=== PATIENT | female | born 1960 | race Caucasian/White ===

== ENCOUNTER → 2017-08-19 13:09 | Outpatient (CLI) | payer OTHER, SELFPAY ==
[2017-08-19 16:29] LABS: Estradiol < 11.0 pg/mL
[2017-08-19 16:30] LABS: Progesterone Level 0.89 ng/mL (See Comment)
[2017-08-23 11:58] LABS: HPV Reflexed? NOT INDICATED
== END ==
PROVIDERS: Visit Provider Obstetrics & Gynecology
DX: N95.1 Menopausal and female climacteric states (principal); Z12.4 Encounter for screening for malignant neoplasm of cervix
CPT/HCPCS: 36415; 82670; 84144; 84403; 88175; G0145

== ENCOUNTER → 2017-08-21 13:23 | Outpatient (CLI) | payer OTHER, SELFPAY ==
--- NOTE | 2017-08-21 13:30 | US_ITS ---
STUDY: ULTRASOUND COMPLETE CLINICAL: Female, 57 years old. Pelvic pain TECHNIQUE: Transvaginal and transabdominal COMPARISON: None. FINDINGS: Normal uterine size measuring 6.5 x 4 x 2.5 cm in maximal craniocaudal dimension. There are no myometrial masses. Normal endometrial thickness measuring 4 mm. There are no endometrial masses, and there is no fluid in the endometrial cavity. Normal uterine cervix. Normal right ovary, measuring 1.9 x 1.8 x 1.1 cm. There are multiple follicles without a dominant cyst. Normal left ovary, measuring 3 x 2.2 x 1.3 cm. There are multiple follicles without a dominant cyst. There is no free fluid in the pelvis. Polycystic ovary disease: No. US/Pelvic (Non ) IMPRESSION: Normal pelvic sonogram Electronically Signed: Jd Leggett MD at 22:38 EST , Service support ,
--- NOTE | 2017-08-21 14:26 | US_ITS ---
STUDY: ULTRASOUND COMPLETE CLINICAL: Female, 57 years old. Pelvic pain TECHNIQUE: Transvaginal and transabdominal COMPARISON: None. FINDINGS: Normal uterine size measuring 6.5 x 4 x 2.5 cm in maximal craniocaudal dimension. There are no myometrial masses. Normal endometrial thickness measuring 4 mm. There are no endometrial masses, and there is no fluid in the endometrial cavity. Normal uterine cervix. Normal right ovary, measuring 1.9 x 1.8 x 1.1 cm. There are multiple follicles without a dominant cyst. Normal left ovary, measuring 3 x 2.2 x 1.3 cm. There are multiple follicles without a dominant cyst. There is no free fluid in the pelvis. Polycystic ovary disease: No. US/Transvaginal Non- IMPRESSION: Normal pelvic sonogram Electronically Signed: Jd Leggett MD at 22:38 EST , Service support ,
== END ==
PROVIDERS: Family Provider Nurse Practitioner; PCP Nurse Practitioner; Visit Provider Obstetrics & Gynecology
DX: R10.2 Pelvic and perineal pain (principal)
CPT/HCPCS: 76830; 76856; 93976

== ENCOUNTER → 2017-08-26 07:00 | Outpatient (CLI) | payer OTHER, SELFPAY ==
--- NOTE | 2017-08-26 07:03 | HPBI_ITS ---
MAMMOGRAPHY - BILATERAL SCREENING REASON FOR EXAM: Female, 57 years old. Routine annual screening examination. PERTINENT HISTORY: Mother with breast cancer. TECHNIQUE: Digital bilateral breast joce (3D mammographic acquisition) in the CC and MLO projections. 2-D mediolateral oblique (MLO) and craniocaudad (CC) views of both breasts were obtained. CAD: Full Field Digital Mammography with Computer Added Detection was performed. COMPARISON: Comparison is made with prior study dated August 16, 2016 and June 09, 2015. FINDINGS: Breast Composition: The breasts are heterogeneously dense, which may obscure small masses. There are no dominant masses or suspicious calcifications. Stable bilateral benign appearing axillary lymph nodes. No other significant abnormalities are identified. HPBI/SCREENING MAMM (CAD), BILAT IMPRESSION: Stable bilateral screening mammogram. Yearly follow-up mammogram recommended. (A) ASSESSMENT CATEGORY: BIRADS Category 2: Benign. A letter regarding these results will be sent to the patient by the facility within 30 days. Approximately 10% of breast cancers are not detected by mammography. A normal mammogram should not delay biopsy of a clinically suspicious abnormality. [id number] Electronically Signed: Jose Spring MD at 8:54 EST Tel [phone], Service support ,
== END ==
PROVIDERS: Family Provider Nurse Practitioner; Visit Provider Obstetrics & Gynecology
DX: Z12.31 Encounter for screening mammogram for malignant neoplasm of breast (principal)
CPT/HCPCS: 77063; 77067

== ENCOUNTER 2017-09-04 09:36 | Day surgery (SDC) | payer OTHER, SELFPAY ==
[2017-09-04 09:54] VITALS: BP 147/90; PULSE 84; RESP 18; TEMP 36.7; O2SAT 99; BMI 32.4
[2017-09-04 11:35] VITALS: BP 131/87; BP 147/90; PULSE 85; RESP 18; TEMP 36.4; O2SAT 98
[2017-09-04 11:40] VITALS: BP 142/89; BP 147/90; PULSE 88; RESP 18; O2SAT 99
[2017-09-04 11:45] VITALS: BP 135/91; BP 147/90; PULSE 80; RESP 16; O2SAT 99
--- NOTE | 2017-09-04 11:45 | PCM.OPRPT ---
Report of Operation Date of Procedure: 09/04/17 Pre-Operative Diagnosis: Screening for colon cancer Post-Operative Diagnosis: Mild sigmoid diverticulosis Surgery/Procedure Performed:: Colonoscopy Type of Anesthesia:: MAC Anesthesiologist: Everton Chang Specimen's removed: None Estimated Blood Loss (mL): None Description of Procedure: Procedure: Colonoscopy After reviewing the risks benefits, the patient was deemed in satisfactory condition to undergo procedure. After obtaining informed consent, the scope was passed under direct visualization. Throughout the procedure, the patient's blood pressure pulse and position saturations were monitored continuously anesthesia. The colonoscope was introduced through the anus and advanced to the cecum, identified by the appendiceal orifice, IC valve and transillumination. The colonoscopy was performed without difficulty. The patient tolerated procedure well. Quality of bowel prep was good. Findings: The perianal and digital rectal exam were normal. Mild sigmoid diverticulosis was noted. Otherwise the colon (entire examined portion) appeared normal. Retroflexed view of the distal rectum and anal verge was normal and showed no anal or rectal abnormalities Impression: 1. Mild sigmoid diverticulosis 2. The distal rectal and anal verge were normal on retroflexed view. Recommendations: High-fiber diet Repeat colonoscopy in 10 years for screening purposes - Complications none
[2017-09-04 11:49] VITALS: BP 126/95; BP 147/90; PULSE 83; RESP 16; TEMP 36.2; O2SAT 99
[2017-09-04 12:40] VITALS: BP 147/90
== END 2017-09-04 12:41 | disposition home or self-care (01) ==
LOC: EN 09:37 → AC 09:38
PROVIDERS: Visit Provider Surgery
PROC: 0DJD8ZZ Inspection of Lower Intestinal Tract, Via Natural or Artificial Opening Endoscopic (ICD-10-PCS; CPT 45378; principal; 2017-09-04 10:55)
DX: Z12.11 Encounter for screening for malignant neoplasm of colon (principal); K57.30 Diverticulosis of large intestine without perforation or abscess without bleeding; Z87.19 Personal history of other diseases of the digestive system; Z78.0 Asymptomatic menopausal state
CPT/HCPCS: 45378; J7120

== ENCOUNTER → 2018-10-22 | Outpatient (CLI) | payer OTHER, SELFPAY ==
[2018-10-08 11:05] VITALS: BMI 30.8
--- NOTE | 2018-10-22 10:01 | BI_ITS ---
MAMMOGRAPHY - BILATERAL SCREENING REASON FOR EXAM: Female, 58 years old. Routine annual screening examination. PERTINENT HISTORY: Mother with breast cancer. TECHNIQUE: Digital bilateral breast joce (3D mammographic acquisition) in the CC and MLO projections. 2-D mediolateral oblique (MLO) and craniocaudad (CC) views of both breasts were obtained. CAD: Full Field Digital Mammography with Computer Added Detection was performed. COMPARISON: Comparison is made with prior study dated August 26, 2017 and August 16, 2016. FINDINGS: Breast Composition: The breasts are heterogeneously dense, which may obscure small masses. There are no dominant masses or suspicious calcifications. Stable benign-appearing bilateral axillary lymph nodes. No other significant abnormalities are identified. There has been no significant change since the prior study. BI/SCREENING MAMM (CAD), BILAT IMPRESSION: Stable bilateral screening mammogram. Yearly follow-up mammogram recommended. (A) ASSESSMENT CATEGORY: BIRADS Category 2: Benign. A letter regarding these results will be sent to the patient by the facility within 30 days. Approximately 10% of breast cancers are not detected by mammography. A normal mammogram should not delay biopsy of a clinically suspicious abnormality. [id number] Electronically Signed: Jose Spring, at 12:48 EDT , Service support ,
[2018-10-22 16:18] LABS: Estradiol < 11.0 pg/mL
[2018-10-23 14:25] LABS: Progesterone Level 0.38 ng/mL (See Comment)
[2018-10-24 13:02] LABS: HPV Reflexed? NOT INDICATED
== END | disposition home or self-care (01) ==
LOC: OPBI 10:00 → WOBLAB 11:50
PROVIDERS: Referring Provider Obstetrics & Gynecology; Visit Provider Obstetrics & Gynecology
DX: Z78.0 Asymptomatic menopausal state (principal); Z12.4 Encounter for screening for malignant neoplasm of cervix; Z12.31 Encounter for screening mammogram for malignant neoplasm of breast
CPT/HCPCS: 36415; 77063; 77067; 82670; 84144; 88175; G0145

== ENCOUNTER → 2018-11-19 | Outpatient (CLI) | payer OTHER, SELFPAY ==
[2018-10-08 11:05] VITALS: BMI 30.8
--- NOTE | 2018-11-19 13:57 | ECHOD_ITS ---
Reason For Study: MURMUR Procedure This was a 2D Doppler, Color Flow transthoracic echocardiogram. Exam performed in department. Left Ventricle Normal LV size. Left ventricular systolic function is normal. The estimated ejection fraction is 65 %. Stage 2 diastolic dysfunction. No regional wall motion abnormalities noted. Right Ventricle Normal RV size. Normal systolic function. Atria Normal left atrium. Normal right atrium. Mitral Valve Normal mitral valve. Tricuspid Valve Normal tricuspid valve. Mild (1+) tricuspid valve insufficiency. Pulmonary artery systolic pressure is 30 mmHg. Aortic Valve Normal aortic valve. Trisinus/trileaflet aortic valve. Pulmonic Valve Normal pulmonic valve. Great Vessels Normal aortic root. The pulmonary artery is normal size. Normal inferior vena cava. Pericardium/Pleural No pericardial effusion. MMode/2D Measurements & Calculations LVIDd: 3.9 cm IVSd: 0.81 cm Ao root diam: 2.9 cm LVIDs: 2.5 cm LVPWd: 0.80 cm RVDd: 3.3 cm FS: 35.0 % LAV(MOD-bp): 31.8 ml LVAd ap4: 27.5 cm2 SV(MOD-sp4): 50.7 ml LAV(MOD-bp) Indexed: 17.2 ml/m2 EDV(MOD-sp4): 80.6 ml LAV(MOD-sp2): 28.5 ml EDV(sp4-el): 85.9 ml LAV(MOD-sp4): 35.1 ml LVAs ap4: 14.8 cm2 ESV(MOD-sp4): 29.9 ml ESV(sp4-el): 30.2 ml EF(MOD-sp4): 62.9 % EF(sp4-el): 64.9 % SV(sp4-el): 55.7 ml LA A4 area: 14.5 cm2 LA dimension(2D): 3.6 cm RA A4 area: 14.3 cm2 Time Measurements MV dec time: 0.18 sec Doppler Measurements & Calculations MV E max yusef: 99.5 cm/sec Lat Peak E' Yusef: 10.5 cm/sec Med Peak E' Yusef: 8.1 cm/sec MV A max yusef: 74.5 cm/sec E/E' lat: 9.5 E/E' med: 12.3 MV E/A: 1.3 Ao V2 max: 137.8 cm/sec LV V1 max: 118.8 cm/sec PA V2 max: 145.1 cm/sec Ao max P.6 mmHg LV V1 max P.6 mmHg TR max yusef: 264.3 cm/sec TR max P.9 mmHg Interpretation Summary Normal LV size. Left ventricular systolic function is normal. The estimated ejection fraction is 65 %. Stage 2 diastolic dysfunction. Mild (1+) tricuspid valve insufficiency. Ordering Physician: Cristiano Good Referring Physician: YVONNE GOODE Performed By: Ivette Puentes RDCS
== END | disposition home or self-care (01) ==
LOC: CVS 13:56
PROVIDERS: Referring Provider Internal Medicine Cardiovascular Disease; Visit Provider Internal Medicine Cardiovascular Disease
DX: R01.1 Cardiac murmur, unspecified (principal)
CPT/HCPCS: 93306

== ENCOUNTER → 2020-02-17 07:01 | Outpatient (CLI) | payer OTHER, SELFPAY ==
[2018-10-08 11:05] VITALS: BMI 30.8
--- NOTE | 2020-02-17 07:05 | BI_ITS ---
MAMMOGRAPHY - BILATERAL SCREENING REASON FOR EXAM: Female, 59 years old. Routine annual screening examination. PERTINENT HISTORY: Mother with breast cancer. TECHNIQUE: Digital bilateral breast ezio (3D mammographic acquisition) in the CC and MLO projections. 2-D mediolateral oblique (MLO) and craniocaudad (CC) views of both breasts were obtained. CAD: Full Field Digital Mammography with Computer Added Detection was performed. COMPARISON: Comparison is made with prior examination dated 10/22/2018 and 08/26/2017. FINDINGS: Breast Composition: The breasts are heterogeneously dense, which may obscure small masses. There are no dominant masses or suspicious calcifications. Stable benign appearing bilateral axillary lymph nodes. No other significant abnormalities are identified. There has been no significant change since the prior study. BI/SCREEN MAMM (CAD) W/EZIO BILAT IMPRESSION: Stable bilateral screening mammogram. Yearly follow-up mammogram recommended. (A) ASSESSMENT CATEGORY: BIRADS Category 2: Benign. A letter regarding these results will be sent to the patient by the facility within 30 days. Approximately 10% of breast cancers are not detected by mammography. A normal mammogram should not delay biopsy of a clinically suspicious abnormality. [id number] Electronically Signed: Jose Spring, at 8:26 EDT , Service support ,
== END ==
PROVIDERS: Referring Provider Obstetrics & Gynecology; Visit Provider Obstetrics & Gynecology
DX: Z12.31 Encounter for screening mammogram for malignant neoplasm of breast (principal); Z80.3 Family history of malignant neoplasm of breast
CPT/HCPCS: 77063; 77067

== ENCOUNTER → 2021-02-22 07:02 | Outpatient (CLI) | payer OTHER, SELFPAY ==
[2018-10-08 11:05] VITALS: BMI 30.8
--- NOTE | 2021-02-22 07:04 | BI_ITS ---
MAMMOGRAPHY - BILATERAL SCREENING 3-D TOMOSYNTHESIS REASON FOR EXAM: Female, 60 years old. SCREENING PERTINENT HISTORY: No significant family history. TECHNIQUE: 2-D mammograms and 3-D Tomosynthesis of the breast (s) were performed. CAD was performed. COMPARISON: 02/17/2020 FINDINGS: The breast composition is Extermely dense tissue. Scattered benign calcifications are seen. No dense spiculated masses or suspicious microcalcifications are identified. No architectural distortion is identified. There is no skin thickening or retraction. There has been no significant change since the prior study. BI/SCRN MAMM (CAD)W/EZIO BILAT IMPRESSION: No mammographic signs of malignancy. Routine yearly mammograms recommended. ASSESSMENT CATEGORY: BIRADS Category 1: Negative. A letter regarding these results will be sent to the patient by the facility within 30 days. FOLLOW UP RECOMMENDATION: Yearly follow up mammogram recommended. (A) Approximately 10% of breast cancers are not detected by mammography. A normal mammogram should not delay biopsy of a clinically suspicious abnormality. Electronically Signed: Avila Jin MD at 10:14 EDT Tel , Service support ,
== END ==
PROVIDERS: Referring Provider Student in an Organized Health Care Education/Training Program; Visit Provider Student in an Organized Health Care Education/Training Program
DX: Z12.31 Encounter for screening mammogram for malignant neoplasm of breast (principal)
CPT/HCPCS: 77063; 77067

== ENCOUNTER → 2022-04-03 | Outpatient (CLI) | payer OTHER, SELFPAY ==
--- NOTE | 2022-04-03 07:16 | BI_ITS ---
MAMMOGRAPHY - BILATERAL SCREENING REASON FOR EXAM: Female, 61 years old. Routine annual screening examination. PERTINENT HISTORY: Mother with breast cancer. TECHNIQUE: Digital bilateral breast ezio (3D mammographic acquisition) in the CC and MLO projections. 2-D mediolateral oblique (MLO) and craniocaudad (CC) views of both breasts were obtained. CAD: Full Field Digital Mammography with Computer Added Detection was performed. COMPARISON: Comparison is made with prior examination of 02/22/2021 and 02/17/2020. FINDINGS: Breast Composition: The breasts are extremely dense, which lowers the sensitivity of mammography. There are no dominant masses or suspicious calcifications. Stable small benign-appearing bilateral axillary lymph nodes. No other significant abnormalities are identified. There has been no significant change since the prior study. BI/SCRN MAMM (CAD)W/EZIO BILAT IMPRESSION: Stable bilateral screening mammogram. Yearly follow-up mammogram recommended. (A) ASSESSMENT CATEGORY: BIRADS Category 2: Benign. A letter regarding these results will be sent to the patient by the facility within 30 days. Approximately 10% of breast cancers are not detected by mammography. A normal mammogram should not delay biopsy of a clinically suspicious abnormality. [id number] Electronically Signed: Jose Spring MD at 8:30 EDT ,
== END | disposition home or self-care (01) ==
LOC: OPBI 07:14
PROVIDERS: Referring Provider Obstetrics & Gynecology Gynecology; Visit Provider Obstetrics & Gynecology Gynecology
DX: Z12.31 Encounter for screening mammogram for malignant neoplasm of breast (principal); Z80.3 Family history of malignant neoplasm of breast
CPT/HCPCS: 77063; 77067

== ENCOUNTER 2022-12-02 13:46 | Emergency (ER) | payer OTHER, SELFPAY ==
[2022-12-02 13:47] VITALS: BP 148/104; PULSE 117; RESP 18; TEMP 36; O2SAT 97; BMI 35.3
--- NOTE | 2022-12-02 14:07 | EKG12_ITS ---
Test Reason : PALPS Blood Pressure : / mmHG Vent. Rate : 103 BPM Atrial Rate : 103 BPM P-R Int : 154 ms QRS Dur : 070 ms QT Int : 338 ms P-R-T Axes : 036 -16 016 degrees QTc Int : 442 ms Sinus tachycardia Minimal voltage criteria for LVH, may be normal variant ( R in aVL ) Borderline ECG Confirmed by AMAURY CAVANAUGH, ELVIRA ([id number]), tape editor MARCELLA ZABALA ([id number]) on 12/04/2022 7:48:59 AM Referred By: SANDOVAL/BETZY Confirmed By:RENETTA REBOLLEDO MD
[2022-12-02 14:28] LABS: Absolute Lymphocyte Count 2.83 X10^3/uL (0.83-4.51); Absolute Neutrophil Count 3.4 X10^3/uL (2.0-7.7); Basophil# 0.06 X10^3/uL; Basophil% 0.9 % (0-1); Eosinophil# 0.12 X10^3/uL; Eosinophils% 1.7 % (0-5); Hematocrit 43.4 % (37-47); Hemoglobin 14.1 g/dL (12.0-15.0); Lymphocyte # 2.83 X10^3/ul (0.83-4.51); Lymphocyte % 40.4 % (19-41); Mean Corp Hgb Conc 32.5 g/dL (32-36); Mean Corpuscular Hgb 29.9 pg (27.0-32.0); Mean Corpuscular Volume 91.9 fL (81-99); Mean Platelet Vol. 10.1 fl (6.2-12.0); Monocyte# 0.64 X10^3/uL; Monocyte% 9.1 % (0-10); NRBC Flagged by Analyzer 0 % (0-5); Neutrophil # 3.35 X10^3/uL (2.7-7.7); Neutrophil % 47.8 % (47-70); Platelet Count 328 K/mm3 (150-450); RBC Distribution Width CV 12.2 % (11.6-14.6); RBC Distribution Width SD 41.3 fl (35.1-43.9); Red Blood Count 4.72 M/mm3 (4.2-5.4)
--- NOTE | 2022-12-02 14:35 | RAD_ITS ---
HISTORY: chest pain. TECHNIQUE: XR Chest 1 View. COMPARISON: None. FINDINGS: CARDIOMEDIASTINAL BORDERS: Cardiac silhouette within normal limits in size. Mediastinal contour unremarkable. LUNGS: Radiographically clear. PLEURA: No pleural effusion or pneumothorax seen. OSSEOUS STRUCTURES: Unremarkable. RAD/Chest 1 View (Portable) IMPRESSION: No acute cardiopulmonary process identified. Electronically Signed: Bhumi Flowers MD at 14:54 EDT ,
[2022-12-02 14:39] LABS: D-Dimer Quantitative (DVT/PE) 0.37 FEU/ug/m (0.27-0.49)
[2022-12-02 14:41] LABS: Anion Gap 7 (5-15); BUN 15 mg/dL (7-18); BUN/Creat Ratio 15.9 RATIO (10-20); Calcium,Total 9.5 mg/dL (8.5-10.1); Chloride 110 mmol/L (98-107); Creatinine, Serum 0.94 mg/dL (0.55-1.02); EST Glomerular Filtration Rate 64 mL/min (>60); Est Glom Filt Rate - Afr Amer 78 mL/min (>60); Estimated Creatinine Clearance 52.65 ml/min; Glucose 114 mg/dL (74-106); Potassium 3.8 mmol/L (3.5-5.1); Sodium Level 139 mmol/L (136-145)
--- NOTE | 2022-12-02 14:42 | EDS_ITS ---
HPI History of Present Illness Chief Complaint: Palpitations Detail of Chief Complaint: Palpitations Informant: patient Narrative Narrative: Patient presents to the emergency department with complaint of palpitations for the last 3 days. She sometimes will feel them when she is more active and up and walking around although she has been going for walks every morning and does not feel it at that time. Patient at times will feel these palpitations in her throat. She denies chest pain. She denies recent travel or surgery. No history of PE or DVT. She does have an Apple Watch that picked up a heart rate in the 150s concerning for A-fib. Patient has no heart history and no prior episodes of A-fib. Patient not anticoagulated. She denies recent illness. PFSH PFSH Medical History (Updated 12/02/22 @ 15:[address] Jaquan Morin DO) Abdominal pain Diverticulosis Hemorrhoid Hemorrhoids Obesity Home Medications organ concentrates 80 mg capsule mg PO 10/03/18 [History Last Taken Unknown] cpd progeterone PO 10/08/18 [History Last Taken Unknown] Allergy/AdvReac Type Severity Reaction Status Date / Time No Known Allergies Allergy Verified 12/02/22 13:47 Family History Mother Diabetes Osteoporosis Breast cancer Thyroid disorder Father Cancer Lung Sister Diabetes Thyroid disorder Heart disease heart murmur Sister Heart disease MVP Surgical History History of colonoscopy Social History (Updated 10/08/18 @ 11:[address] Cristiano Good MD) Smoking Status: Never smoker second hand exposure: No alcohol intake: current alcohol intake frequency: a few times a month substance use type: does not use caffeine: Yes what type of physical activity do you participate in: walking, running and weight training frequency: 1-2 times per week seatbelt use: always ROS ROS ED Review of Systems ROS Unobtainable: other Constitutional Constitutional ED: Reports lethargy; Denies chills, fever(s), sweats or weight loss Eyes Eyes: Denies blurry vision, change in vision or diplopia ENT ENT ED: Denies rhinorrhea or sore throat Cardiovascular Cardiovascular: Reports palpitations and racing heartbeat; Denies chest pain or orthopnea Respiratory/Chest Respiratory/Chest: Denies cough, dyspnea, dyspnea on exertion, orthopnea or sputum Gastrointestinal Gastrointestinal: Denies abdominal pain, diarrhea, nausea or vomiting Genitourinary Genitourinary ED: Denies dysuria, hematuria or urinary frequency Musculoskeletal Musculoskeletal: Denies arthralgias, back pain, myalgias or neck pain Integumentary Denies abscess, Abrasions or rash Neurologic Neurologic: Denies headache(s) or weakness Psychiatric Psychiatric: Denies anxiety, depression or suicidal thoughts Endocrine Endocrinology: Denies polydipsia, polyphagia or polyuria Hematologic/Lymphatic Hematologic/Lymphatic: Denies easy bleeding, easy bruising or lymphadenopathy Allergic/Immunologic Allergic/Immunologic ED: Denies mouth swelling, tongue swelling or urticaria EXAM Physical Exam Const Vital Signs: 12/02/22 13:47 Temperature 96.8 F L Temperature Source Temporal Pulse Rate 117 H Respiratory Rate 18 Blood Pressure 148/104 H Blood Pressure Mean 118 Pulse Ox 97 Oxygen Delivery Method Room Air Positive well nourished and well developed General Appearance ED: well developed and NAD HEENT Reports TM's clear and moist mucous membranes normocephalic and atraumatic; Negative for trauma or tenderness Tympanic Membrane ED: Yes TM's clear Eyes PERRL and EOMs intact bilaterally General Eye ED: Negative for pale conjunctiva or scleral icterus Neck no lymphadenopathy, supple and no JVD General: Negative for tenderness Chest Wall inspection of chest normal and palpation of chest normal Chest: Negative for tenderness Resp normal respiratory effort and clear to auscultation bilaterally Effort and Inspection: Negative for respiratory distress or pain with movement Auscultation: Negative for rhonchi, wheezes or diminished lung sounds Cardio regular rate, regular rhythm, S1 normal heart sound, S2 normal heart sound and no murmurs Peripheral Pulses: pulses 2+ throughout GI normal to inspection, nondistended, normoactive bowel sounds, soft to palpation, non-tender, non-distended and no masses Back/Spine no CVA tenderness and no thoracic nor lumbar tenderness Extremity normal to inspection General Extremety ED: Negative for edema General Extremity: Negative for edema Neuro oriented x3, CN's II-XII intact bilaterally, no sensory deficits noted and gait normal Sensorium / Orientation: awake, alert, oriented to person, oriented to place and oriented to time Motor Exam: strength 5/5 throughout and strength abnormal Psych mental status grossly normal Skin no rashes or lesions noted and no wounds MDM MDM MDM Narrative Medical decision making narrative: Patient presents with palpitations x3 days. Evaluating her Apple Watch pictures on her phone show an episode of what looks like A-fib with a heart rate in the 150s an event that occurred earlier today. On arrival EKG was obtained and showed sinus tachycardia with a rate of 103 bpm with no acute ST segment changes noted. IV line established. CBC with differential obtained showing a 7.0 with hemoglobin of 14 platelets 328. D-dimer was normal at 0.37. Chemistries were unremarkable. Troponin was normal. Case discussed with public works technician on-call Dr. Cristiano Good who wanted to place patient on a Holter monitor and have her follow-up with his office. He did not want to start any medications at this t roberto. Her CHADS2 score is low and I do not feel she needs anticoagulated. Lab Data Attestation: I reviewed the patient's lab results. Labs: Laboratory Results - last 24 hr 12/02/22 12/02/22 12/02/22 14:10 14:10 14:10 WBC 7.0 RBC 4.72 Hgb 14.1 Hct 43.4 MCV 91.9 MCH 29.9 MCHC 32.5 RDW Std Deviation 41.3 RDW Coeff of Gina 12.2 Plt Count 328 MPV 10.1 Immature Gran % (Auto) 0.100 Neut % (Auto) 47.8 Lymph % (Auto) 40.4 Rabun % (Auto) 9.1 Eos % (Auto) 1.7 Baso % (Auto) 0.9 Absolute Neuts (auto) 3.4 Absolute Lymphs (auto) 2.83 Nucleated RBC % 0 D-Dimer Quant (PE/DVT) 0.37 Sodium 139 Potassium 3.8 Chloride 110 H Carbon Dioxide 22.0 Anion Gap 7 BUN 15 Creatinine 0.94 Estim Creat Clear Calc 52.65 Est GFR (MDRD) Af Amer 78 Est GFR (MDRD) Non-Af 64 BUN/Creatinine Ratio 15.9 Glucose 114 H Calcium 9.5 Troponin I High Sens Cancelled 12/02/22 14:10 WBC RBC Hgb Hct MCV MCH MCHC RDW Std Deviation RDW Coeff of Gina Plt Count MPV Immature Gran % (Auto) Neut % (Auto) Lymph % (Auto) Rabun % (Auto) Eos % (Auto) Baso % (Auto) Absolute Neuts (auto) Absolute Lymphs (auto) Nucleated RBC % D-Dimer Quant (PE/DVT) Sodium Potassium Chloride Carbon Dioxide Anion Gap BUN Creatinine Estim Creat Clear Calc Est GFR (MDRD) Af Amer Est GFR (MDRD) Non-Af BUN/Creatinine Ratio Glucose Calcium Troponin I High Sens 6 Radiography Diagnostic Testing: Clinical Impression(s) from Imaging Studies Chest X-Ray 12/02/22 14:35 IMPRESSION: No acute cardiopulmonary process identified. Electronically Signed: Bhumi Flowers MD at 14:54 EDT Reading Location ID and State: [facility] / [place] Tel , Service support , 1 view chest x-ray obtained interpreted by myself as no evidence of infiltrate or pneumothorax or acute disease process. Radiology in agreement. EKG Initial EKG: Attestation: I personally reviewed and interpreted this EKG as follows: Comments: Sinus rhythm with a rate of 103 bpm with no acute ST segment changes Discharge Plan Triage Chief Complaint: Palpitations ED Provider: Jaquan Morin Dx/Rx/DC Orders Clinical Impression: Heart palpitations, Paroxysmal A-fib Instructions: ED AFIB, ED Palpitations Prescriptions: No Action cpd progeterone 75 mg PO organ concentrates 80 mg capsule 80 mg capsule PO Primary Care Provider: Louise Carpenter NP Referrals: Cristiano Good MD [Med Staff - Active Staff] - 3-5 Days Kayla Benavides DO [Non-Staff] - Disposition Disposition: Home, Self Care
[2022-12-02 14:54] LABS: Troponin-I HS (w/2H Reflex) 6 pg/mL (3.0-54.0)
--- NOTE | 2022-12-02 15:50 | ED.RN ---
STRIP PRINTED FOR ELEVATED HR
--- NOTE | 2022-12-02 15:50 | ED.RN ---
MONITOR SET UP BY [facility]
[2022-12-02 15:57] LABS: Thyroid Stim Hormone (TSH) 2.52 uIU/mL (0.358-3.74)
[2022-12-02 16:22] LABS: Reflex Troponin-HS? (from REC) Y
== END 2022-12-02 15:51 | disposition home or self-care (01) ==
PROVIDERS: Emergency Provider Emergency Medicine; PCP Nurse Practitioner Primary Care; Visit Provider Emergency Medicine
DX: I48.0 Paroxysmal atrial fibrillation (principal); E66.9 Obesity, unspecified
CPT/HCPCS: 71045; 80048; 84443; 84484; 85025; 85379; 93005; 93225; 93226; 99284; A4216

== ENCOUNTER 2022-12-02 15:26 | Outpatient (CLI) | payer OTHER, SELFPAY | END 2022-12-02 23:59 | disposition home or self-care (01) | LOC: PSN 15:28 | PROVIDERS: PCP Nurse Practitioner Primary Care; Referring Provider Emergency Medicine; Visit Provider Internal Medicine Cardiovascular Disease | DX: R00.2 Palpitations (principal) | CPT/HCPCS: 93225; 93226 ==

== ENCOUNTER → 2023-11-27 | Outpatient (CLI) | payer OTHER, SELFPAY ==
--- NOTE | 2023-11-27 07:11 | BI_ITS ---
MAMMOGRAPHY - BILATERAL SCREENING REASON FOR EXAM: Female, 63 years old. Routine annual screening examination. PERTINENT HISTORY: Mother with breast cancer. TECHNIQUE: Digital bilateral breast ezio (3D mammographic acquisition) in the CC and MLO projections. 2-D mediolateral oblique (MLO) and craniocaudad (CC) views of both breasts were obtained. CAD: Full Field Digital Mammography with Computer Added Detection was performed. COMPARISON: Comparison is made with prior study April 03, 2022 and February 22, 2021. FINDINGS: Breast Composition: The breasts are extremely dense, which lowers the sensitivity of mammography. There are no dominant masses or suspicious calcifications. Stable benign-appearing bilateral axillary lymph nodes. No other significant abnormalities are identified. There has been no significant change since the prior study. BI/SCRN MAMM (CAD)W/EZIO BILAT IMPRESSION: Stable bilateral screening mammogram. Yearly follow-up mammogram recommended. (A) ASSESSMENT CATEGORY: BIRADS Category 2: Benign. A letter regarding these results will be sent to the patient by the facility within 30 days. Approximately 10% of breast cancers are not detected by mammography. A normal mammogram should not delay biopsy of a clinically suspicious abnormality. [id number] Electronically Signed: Jose Spring MD at 9:27 EDT ,
== END | disposition home or self-care (01) ==
LOC: OPBI 07:08
PROVIDERS: PCP Nurse Practitioner Primary Care; Referring Provider Nurse Practitioner Primary Care; Visit Provider Nurse Practitioner Primary Care
DX: Z12.31 Encounter for screening mammogram for malignant neoplasm of breast (principal); Z80.3 Family history of malignant neoplasm of breast
CPT/HCPCS: 77063; 77067